=== PATIENT | female | born 1990 | race African-American/Black ===

== ENCOUNTER 2017-03-27 14:14 | Emergency (ER) | payer SELFPAY ==
[2017-03-27 14:20] VITALS: BP 126/80; BMI 32.5
[2017-03-27] MEDS ORDERED: XYLOCAINE VISCOUS MT STA (14:44)
[2017-03-27] MEDS ORDERED: ROCEPHIN VIAL 1 GM IM ONE (14:46)
[2017-03-27] MEDS ORDERED: TORADOL 60 MG VIAL IM ONE (14:46)
--- NOTE | 2017-03-27 14:49 | DR.GENAD ---
HPI - PCP Primary Care Physician: hernandez - Complaint/Symptoms Chief Complaint Doctors Comments: Patient is complaining of sore throat for the past two days getting worst today with painful swallowing and problems drinking liquids. States she has had mononucleosis in 2003 in which she was hospitalized for about a week and she had turned jaundice at that time. 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 States her temp was 103 last night. States she has had a bilateral tubaligatin. She denies dysuria, hematuria or diarrhea. States she usually get yeast infection after antibiotics and wants some Diflucan. Chief Complaint:: patient stated her throat has been hurting. she stated she has a hx of strep and mono. 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: NO Have you had fever, night sweats or hemotysis?: No Have you traveled outside the country in the last 6 months?: No Isolation: Standard ROS - Review of Systems Constitutional: No Symptoms Reported, Fever, Malaise, Weakness. negative: See HPI, Chills, Diaphoresis, Irritable, Fatigue, Loss of Appetite, Other Eyes: No Symptoms Reported. negative: See HPI, Eye Pain, Blurred Vision, Tearing, Discharge, Photophobia, Diplopia, Other ENTM: No Symptoms Reported, Nose Congestion, Mouth Pain, Throat Pain, Throat Swelling. negative: See HPI, Ear Pain, Ear Discharge, Pulling on Ears, Hearing Loss, Nose Pain, Nose Discharge, Epistaxis, Mouth Swelling, Loose Teeth, Drooling, Ear Foreign Body Respiratoy: No Symptoms Reported. negative: See HPI, Productive Cough, Non- Productive Cough, Moist Cough, Dry Cough, Hacking Cough, Barking Cough, Brassy Cough, Orthopnea, Short of Breath, Stridor, Wheezing, Hemoptysis, Other Cardiovascular: No Symptoms Reported. negative: See HPI, Chest Pain, Edema, Palpitations, Syncope, Cyanosis, Skin Mottling, Other Gastrointestinal/Abdominal: No Symptoms Reported Genitourinary: No Symptoms Reported Neurological: No Symptoms Reported, Weakness. negative: See HPI, Anxiety, Depressed, Emotional Problems, Headache, Numbness, Paresthesia, Pre-existing Deficit, Seizure, Tingling, Tremors, Dizziness, Problems Walking, Speech Problem , Other Musculoskeletal: No Symptoms Reported Integumentary: No Symptoms Reported Hematologic/Lymphatic: No Symptoms Reported Endocrine: No Symptoms Reported. negative: See HPI, Excessive Sweating, Flushing, Intolerance to Cold, Intolerance to Heat, Increased Hunger, Increased Thirst, Increased Urine, Unexplained Weight Gain, Unexplained Weight Loss, Failure to Thrive, Decreased Appetite, Other Psychiatric: No Symptoms Reported PE - Vital Signs Vitals: Temperature 99.9 F Pulse Rate 105 Respiratory Rate 16 Blood Pressure [Left Arm] 132/74 Blood Pressure 126/80 O2 Sat by Pulse Oximetry 100 - General Limitations: No Limitations General Appearance: Alert, In Distress (moderate) - Head Head Exam: Normal Inspection, Atraumatic, Normocephalic - Eyes Eye exam: Normal Appearance, PERRL, EOMI. negative: Scleral Icterus, Conjunctival Injection, Nystagmus, Miosis, Mydrasis, Periorbital Swelling, Periorbital Tenderness, Other - ENT ENT Exam: Normal Exam, Normal Oropharynx, Normal External Ear Exam, Mucous Membranes Moist, TM's Normal Bilaterally External Ear Exam: Normal External Inspection TM/Canal Exam: Bilateral Normal Mouth Exam: Normal Inspection, Drooling. negative: Trismus, Lip Swelling, Tongue Elevation, Tongue Swelling, Laceration, Other Throat Exam: Normal Inspection, Tonsillar Exudate - Neck Neck Exam: Normal Inspection, Full ROM, Trachea Midline. negative: Tenderness ( eeeeeeeeeeeeeeeeeeeeeeeeeeeeeeeeeeeeeeeeeeeeeeeeeeeeeeeeeeeeeeeeeeeeeeeeeeeeeeee eeeeeeeeeee ), Meningismus, Lymphadenopathy, Thyromegaly, Other - Chest Chest Inspection: Normal Inspection, Symmetric Chest Wall Rise - Respiratory Respiratory Exam: Normal Lung Sounds Bilat Respiratory Exam: Bilateral Clear to Auscultation - Cardiovascular Cardiovascular Exam: Regular Rate, Normal Rhythm, Normal Heart Sounds - Abdominal Exam Abdominal Exam: Normal Inspection, Normal Bowel Sounds, Soft Abdominal Tenderness: negative: RUQ, RLQ, LUQ, LLQ, Epigastrium, Suprapubic, Diffuse, Mild, Moderate, Severe, Other - Extremities Extremities Exam: Normal Inspection, Full ROM, Normal Capillary Refill. negative: Tenderness, Edema, Joint Swelling, Calf Tenderness, Other - Back Back Exam: Normal Inspection, Full ROM. negative: Tenderness, (R) CVA Tenderness, (L) CVA Tenderness, Muscle Spasm, Paraspinal Tenderness, Vertebral Tenderness, Rashes, (R) Sciatic Notch Tenderness, (L) Sciatic Notch Tendern, (R ) Straight Leg Raise, (L) Straight Leg Raise, Other - Neurologic Neurological Exam: Alert, Oriented X3, CN II-XII Intact, Normal Gait, Reflexes Normal - Psychiatric Psychiatric Exam: Normal Affect, Normal Mood. negative: Depressed, Agitated, Anxious, Flat Affect, Manic, Homicidal Ideation, Suicidal Ideation, Other - Skin Skin Exam: Warm, Dry, Intact, Normal Color ROR - Labs Reviewed Laboratory Results Reviewed?: Yes (All labs and x-ray results reviewed and discussed with patient) Laboratory: Monoscreen Negative (NEGATIVE) 03/27/17 15:02 Streptococcus Screen Negative (NEGATIVE) 03/27/17 14:30 - XRAY XRAY Interpreted by: Radiologist - Diagnosis Discharge Problem: Pharyngitis, acute Qualifiers: Pharyngitis/tonsillitis etiology: unspecified etiology Qualified Code(s): J02.9 - Acute pharyngitis, unspecified Sinusitis Qualifiers: Sinusitis location: maxillary - Discharge Plan Disposition: 01 HOME, SELF-CARE Condition: Stable Prescriptions: Acetaminophen/Codeine Tab [TYLENOL w/CODEINE #3 (300 MG/30 MG) *] 1 tab PO Q4- 6H PRN #30 tab PRN Reason: Pain Amoxicillin & Pot Clavulanate [AUGMENTIN TAB 875 mg/125 mg *] 1 tab PO BID #20 tab Cetirizine HCl [Zyrtec Tab 10 mg] 10 mg PO DAILY #30 tab Fluconazole [DIFLUCAN TAB 150 MG *] 150 mg PO ONCE #2 tab - Follow ups/Referrals Follow ups/Referrals: AMY SINGLETON [Primary Care Provider] - 3 days - Instructions Instructions: Pharyngitis, Sore Throat, [id number], Dysphagia Diet Level 1, Pureed, Sinusitis, Adult
[2017-03-27] MEDS ORDERED: ROCEPHIN VIAL 1 GM ONE (15:19)
[2017-03-27] MEDS ORDERED: TORADOL 60 MG VIAL ONE (15:19)
[2017-03-27 15:30] LABS: MONOTEST NEGATIVE (NEGATIVE)
[2017-03-27] MEDS ORDERED: DIFLUCAN PO ONE (15:48)
[2017-03-27] MEDS ORDERED: XYLOCAINE VISCOUS ONE (16:00)
== END 2017-03-27 16:09 | disposition home or self-care (01) ==
LOC: ER 14:23
DX: J02.9 Acute pharyngitis, unspecified (principal); J32.0 Chronic maxillary sinusitis
CPT/HCPCS: 86308; 87070; 87880; 96372; 99282; 99283; J0696; J1885

== ENCOUNTER 2017-03-29 00:02 | Emergency (ER) | payer SELFPAY ==
[2017-03-29 00:15] VITALS: BP 113/80; BMI 32.3
[2017-03-29] MEDS ORDERED: TORADOL 60 MG VIAL IM ONE (00:42)
--- NOTE | 2017-03-29 00:42 | DR.GENAD ---
HPI - PCP Primary Care Physician: hernandez - HPI Comment HPI Comment: PATIENT SEEN IN ED TWO DAYS AGO. STREP AND MONO WERE NEGATIVE. CURRENTLY ON AUGMENTIN AND TYLENOL 3. SHE IS THROWING UP MEDS AND GETTING WORSE. STILL RUNNING FEVER. - Complaint/Symptoms Chief Complaint Doctors Comments: SORE THROAT AND DYSPHAGIA TIMES 4 DAYS. 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 negative: Ear Pain Respiratoy: No Symptoms Reported, Non-Productive Cough. negative: Productive Cough, Short of Breath, Wheezing, Hemoptysis Cardiovascular: No Symptoms Reported. negative: Chest Pain, Edema, Palpitations Gastrointestinal/Abdominal: No Symptoms Reported. negative: Abdominal Pain, Constipation, Diarrhea, Nausea, Vomiting Genitourinary: negative: Dysuria, Frequency, Hematuria Neurological: Headache. negative: Weakness, Dizziness Musculoskeletal: Muscle Pain Integumentary: No Symptoms Reported Hematologic/Lymphatic: No Symptoms Reported Endocrine: No Symptoms Reported All Other Systems: Reviewed and Negative PE - Vital Signs Vitals: Temperature 99.7 F Pulse Rate 100 Respiratory Rate 16 Blood Pressure [Left Arm] 132/74 Blood Pressure 113/80 O2 Sat by Pulse Oximetry 98 - General Limitations: No Limitations General Appearance: Alert - Head Head Exam: Normal Inspection - Eyes Eye exam: Normal Appearance - ENT ENT Exam: Normal External Ear Exam External Ear Exam: Normal External Inspection TM/Canal Exam: Bilateral Normal Nose Exam: Normal Nose Exam Mouth Exam: Normal Inspection. negative: Trismus Throat Exam: Tonsillar Erythema, Tonsillomegaly, Tonsillar Exudate - Neck Neck Exam: Trachea Midline. negative: Tenderness, Meningismus, Lymphadenopathy - Chest Chest Inspection: Symmetric Chest Wall Rise - Respiratory Respiratory Exam: Normal Lung Sounds Bilat Respiratory Exam: Bilateral Clear to Auscultation - Cardiovascular Cardiovascular Exam: Regular Rate, Normal Rhythm, Normal Heart Sounds - Abdominal Exam Abdominal Exam: Normal Bowel Sounds, Soft. negative: Tenderness - Extremities Extremities Exam: Normal Inspection - Back Back Exam: Normal Inspection - Neurologic Neurological Exam: Alert, Oriented X3 - Psychiatric Psychiatric Exam: Anxious - Skin Skin Exam: Normal Color [facility] - Additional Information Additional Information Obtained From: Family - Differential Diagnosis Differential Diagnosis: INFECTIOUS MONONUCLEOSIS, PHARYNGITIS, DYSPHAGIA Course - Treatment Treatment: SEE ORDERS - Education/Counseling Education/Counseling: Patient, Family, Education Educated On: Treatment, Diagnosis, Needs for Follow Up ROR - Labs Reviewed Laboratory Results Reviewed?: Yes Result Diagrams: 03/29/17 00:35 03/29/17 00:35 Laboratory: WBC 9.5 X10^3/uL (3.6-10.0) 03/29/17 00:35 RBC 3.90 X10^6/uL (3.5-5.4) 03/29/17 00:35 Hgb 10.9 g/dL (12.0-16.0) L 03/29/17 00:35 Hct 33.1 % (36.0-47.0) L 03/29/17 00:35 MCV 84.9 fL (80.0-100.0) 03/29/17 00:35 MCH 27.9 pg (27.0-34.0) 03/29/17 00:35 MCHC 32.9 g/dL (33.0-35.0) L 03/29/17 00:35 RDW 13.3 % (11.6-16.5) 03/29/17 00:35 Plt Count 221 X10^3/uL (150.0-450.0) 03/29/17 00:35 MPV 9.3 fL (7.4-11.0) 03/29/17 00:35 Neut % 78.6 % (42.0-75.0) H 03/29/17 00:35 Lymph % 11.7 % (21.0-51.0) L 03/29/17 00:35 [place] % 9.3 % (0.0-13.0) 03/29/17 00:35 Eos % 0.0 % (0.9-2.9) L 03/29/17 00:35 Baso % 0.4 % (0.2-1.0) 03/29/17 00:35 Neut # 7.5 x10^3/uL (2.2-4.8) H 03/29/17 00:35 Lymph # 1.1 X10^3/uL (1.3-2.9) L 03/29/17 00:35 [place] # 0.9 x10^3/uL (0.3-0.8) H 03/29/17 00:35 Eos # 0.0 x10^3/uL (0.0-0.2) 03/29/17 00:35 Baso # 0.0 X10^3/uL (0.0-0.1) 03/29/17 00:35 Absolute Nucleated RBC 0.0 /100WBC 03/29/17 00:35 Sodium 138 mmol/L (136-145) 03/29/17 00:35 Corrected Sodium TNP 03/29/17 00:35 Potassium 3.6 mmol/L (3.5-5.1) 03/29/17 00:35 Chloride 104 mmol/L (98-107) 03/29/17 00:35 Carbon Dioxide 27.0 mmol/L (21-32) 03/29/17 00:35 BUN 10 mg/dL (7-18) 03/29/17 00:35 Creatinine 0.99 mg/dL (0.55-1.02) 03/29/17 00:35 Est GFR (MDRD) Af Amer > 60 (>60) 03/29/17 00:35 Est GFR (MDRD) Non-Af > 60 (>60) 03/29/17 00:35 Glucose 91 mg/dL (65-99) 03/29/17 00:35 Calcium 8.5 mg/dL (8.5-10.1) 03/29/17 00:35 Corrected Calcium TNP 03/29/17 00:35 Total Bilirubin 0.40 mg/dL (0.2-1.0) 03/29/17 00:35 AST 18 Units/L (15-37) 03/29/17 00:35 ALT 20 Units/L (12-78) 03/29/17 00:35 Alkaline Phosphatase 46 Units/L (46-116) 03/29/17 00:35 Total Protein 7.1 g/dL (6.4-8.2) 03/29/17 00:35 Albumin 3.4 g/dL (3.4-5.0) 03/29/17 00:35 Globulin 3.7 g/dL (2.5-4.5) 03/29/17 00:35 Albumin/Globulin Ratio 0.9 Ratio (1.1-2.1) L 03/29/17 00:35 Monoscreen Negative (NEGATIVE) 03/29/17 00:35 - Diagnosis Discharge Problem: Acute pharyngitis Qualifiers: Pharyngitis/tonsillitis etiology: unspecified etiology Qualified Code(s): J02.9 - Acute pharyngitis, unspecified Dysphagia Qualifiers: Dysphagia type: oropharyngeal phase Qualified Code(s): R13.12 - Dysphagia, oropharyngeal phase - Discharge Plan Disposition: HOME, SELF-CARE Condition: Stable Prescriptions: Hydrocodone-Acetaminophen [Hydrocodone/Acetaminophen 10-325 mg/15Ml] 10 ml PO Q6H PRN #240 ml PRN Reason: Pain - Follow ups/Referrals Follow ups/Referrals: NFD,None [Primary Care Provider] - 3 days - Instructions Instructions: Dysphagia, Pharyngitis, Dysphagia Diet Level 1, Pureed Additional Instructions: RETURN TO ED IF WORSE.
[2017-03-29] MEDS ORDERED: TORADOL 60 MG VIAL ONE (00:47)
[2017-03-29 01:07] LABS: ALANINE AMINOTRANSFERASE 20 Units/L (12-78); ALBUMIN 3.4 g/dL (3.4-5.0); ALKALINE PHOSPHATASE 46 Units/L (46-116); ASPARTATE AMINO TRANSFERASE 18 Units/L (15-37); BASOPHILS % (AUTO) 0.4 % (0.2-1.0); BLOOD UREA NITROGEN 10 mg/dL (7-18); CALCIUM 8.5 mg/dL (8.5-10.1); CHLORIDE 104 mmol/L (98-107); CREATININE 0.99 mg/dL (0.55-1.02); GLUCOSE 91 mg/dL (65-99); HEMATOCRIT 33.1 % (36.0-47.0); HEMOGLOBIN 10.9 g/dL (12.0-16.0); LYMPHOCYTES # (AUTO) 1.1 X10^3/uL (1.3-2.9); LYMPHOCYTES % (AUTO) 11.7 % (21.0-51.0); MEAN CORPUSCULAR HEMOGLOBIN 27.9 pg (27.0-34.0); MEAN CORPUSCULAR HGB CONC 32.9 g/dL (33.0-35.0); MEAN CORPUSCULAR VOLUME 84.9 fL (80.0-100.0); MEAN PLATELET VOLUME 9.3 fL (7.4-11.0); MONOCYTES # (AUTO) 0.9 x10^3/uL (0.3-0.8); MONOCYTES % (AUTO) 9.3 % (0.0-13.0); NEUTROPHILS # (AUTO) 7.5 x10^3/uL (2.2-4.8); NEUTROPHILS % (AUTO) 78.6 % (42.0-75.0); PLATELET COUNT 221 X10^3/uL (150.0-450.0); RED CELL DISTRIBUTION WIDTH 13.3 % (11.6-16.5); SODIUM 138 mmol/L (136-145); TOTAL PROTEIN 7.1 g/dL (6.4-8.2); WHITE BLOOD COUNT 9.5 X10^3/uL (3.6-10.0); eGFR BLACK RACES > 60 (>60); eGFR NON BLACK RACES > 60 (>60)
[2017-03-29 01:38] LABS: MONOTEST NEGATIVE (NEGATIVE)
== END 2017-03-29 01:57 | disposition home or self-care (01) ==
LOC: ER 00:02
DX: J02.9 Acute pharyngitis, unspecified (principal); R13.12 Dysphagia, oropharyngeal phase
CPT/HCPCS: 36415; 80053; 85025; 86308; 96372; 99282; J1885

== ENCOUNTER → 2017-11-25 | Outpatient (CLI) | payer OTHER ==
[2017-11-25 17:09] LABS: BASOPHILS % (AUTO) 0.4 % (0.2-1.0); EOSINOPHILS # (AUTO) 0.6 x10^3/uL (0.0-0.2); EOSINOPHILS % (AUTO) 7.8 % (0.9-2.9); HEMATOCRIT 36.1 % (36.0-47.0); HEMOGLOBIN 11.6 g/dL (12.0-16.0); LYMPHOCYTES # (AUTO) 2.5 X10^3/uL (1.3-2.9); MEAN CORPUSCULAR HEMOGLOBIN 27.1 pg (27.0-34.0); MEAN CORPUSCULAR VOLUME 84.6 fL (80.0-100.0); MEAN PLATELET VOLUME 8.9 fL (7.4-11.0); MONOCYTES # (AUTO) 0.6 x10^3/uL (0.3-0.8); MONOCYTES % (AUTO) 8.1 % (0.0-13.0); NEUTROPHILS # (AUTO) 4.1 x10^3/uL (2.2-4.8); NEUTROPHILS % (AUTO) 51.7 % (42.0-75.0); PLATELET COUNT 348 X10^3/uL (150.0-450.0); RED BLOOD COUNT 4.26 X10^6/uL (3.5-5.4); RED CELL DISTRIBUTION WIDTH 13.7 % (11.6-16.5)
[2017-11-25 17:28] LABS: ALANINE AMINOTRANSFERASE 18 Units/L (12-78); ALBUMIN 3.7 g/dL (3.4-5.0); ALKALINE PHOSPHATASE 61 Units/L (46-116); ASPARTATE AMINO TRANSFERASE 14 Units/L (15-37); BLOOD UREA NITROGEN 11 mg/dL (7-18); CALCIUM 8.8 mg/dL (8.5-10.1); CARBON DIOXIDE 31.9 mmol/L (21-32); CHLORIDE 105 mmol/L (98-107); CREATININE 0.77 mg/dL (0.55-1.02); SODIUM 141 mmol/L (136-145); TOTAL PROTEIN 7.5 g/dL (6.4-8.2); TSH (3RD GENERATION) 0.738 uIU/mL (0.358-3.74); eGFR BLACK RACES > 60 (>60); eGFR NON BLACK RACES > 60 (>60)
[2017-11-27 21:30] LABS: HEPATITIS A ANTIBODY IGM Negative (Negative)
[2017-11-28 08:29] LABS: HEPATITIS B CORE IGM Negative (Negative); HEPATITIS B SURFACE ANTIGEN Negative (Negative); VITAMIN D 25 OH 12 ng/mL (30-80)
== END ==
LOC: LAB 16:31
PROVIDERS: ATTEND Nurse Practitioner Family
DX: R53.83 Other fatigue (principal); E56.8 Deficiency of other vitamins; Z72.51 High risk heterosexual behavior
CPT/HCPCS: 36415; 80053; 80074; 82306; 84443; 85025; 86592; 86701

== ENCOUNTER 2017-12-13 17:23 | Emergency (ER) | payer OTHER ==
[2017-12-13 17:34] VITALS: BP 130/67; BMI 32.0
--- NOTE | 2017-12-13 17:59 | DR.GENAD ---
HPI - PCP Primary Care Physician: AYAAN - HPI Comment HPI Comment: PATIENT SAID HER BRI MAY HAVE HAD UNPROTECTED SEX. SHE IS HAVING LOWER ABDOMINAL CRAMPING AND ALSO HAVING VAGINAL ITCHING. WAS INTERMITTENT BUT PERSISTENT NOW. - Complaint/Symptoms Chief Complaint Doctors Comments: LOWER ABDOMINAL CRAMPING, EXPOSE TO STD. Chief Complaint:: "PERSONAL/CRAMPING. CRAMPING; WENT TO DR. TWO WEEKS AGO DUE TO PARTNER HAVING SEX WITH SOMEONE ELSE. HE DOESN'T ADMIT TO HAVING UNSAFE SEX BUT PT HAS BEEN HAVING A LOT OF CRAMPING WITH NOTICEABLY ODOR FROM VAGINA. JUST WANTS TO CHECK TO SEE WHAT MIGHT BE GOING ON. BURNING AND ITCHING. 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 - Family History History of Family Medical Conditions: No Family Medical History: Coronary Artery Disease, Hypertension - Social History Does patient currently use any type of tobacco product: Yes Have you used tobacco products in the last 12 months: Yes Type of Tobacco Use: Cigars How many years tobacco product used: 4 Does any household member use tobacco: No Alcohol Use: Occasionally Do you use any recreational Drugs:: No Lives With: Alone Lives Where: Home - infectious screening In the last 2 months have you had wt loss of >10#?: NO Have you had fever, night sweats or hemotysis?: No Have you traveled outside the country in the last 6 months?: No Isolation: Standard ROS - Review of Systems Constitutional: No Symptoms Reported Eyes: No Symptoms Reported ENTM: No Symptoms Reported Respiratoy: No Symptoms Reported Cardiovascular: No Symptoms Reported Gastrointestinal/Abdominal: Abdominal Pain (LOWER ABD.) Genitourinary: Pain, Other (VAGINAL ITCHING.) Neurological: No Symptoms Reported Musculoskeletal: No Symptoms Reported Integumentary: No Symptoms Reported Hematologic/Lymphatic: No Symptoms Reported Endocrine: No Symptoms Reported All Other Systems: Reviewed and Negative PE - Vital Signs Vitals: Temperature 97.3 F Pulse Rate 92 Respiratory Rate 22 Blood Pressure [Left Arm] 132/74 Blood Pressure 130/67 O2 Sat by Pulse Oximetry 100 - General Limitations: No Limitations General Appearance: Alert - Head Head Exam: Normal Inspection - Eyes Eye exam: Normal Appearance - ENT ENT Exam: Normal External Ear Exam External Ear Exam: Normal External Inspection TM/Canal Exam: Bilateral Normal Nose Exam: Normal Nose Exam Mouth Exam: Normal Inspection Throat Exam: Normal Inspection - Neck Neck Exam: Normal Inspection - Chest Chest Inspection: Symmetric Chest Wall Rise - Respiratory Respiratory Exam: Normal Lung Sounds Bilat Respiratory Exam: Bilateral Clear to Auscultation - Cardiovascular Cardiovascular Exam: Regular Rate, Normal Rhythm, Normal Heart Sounds - Abdominal Exam Abdominal Exam: Normal Bowel Sounds, Soft. negative: Tenderness - Extremities Extremities Exam: Normal Inspection - Back Back Exam: Normal Inspection - Neurologic Neurological Exam: Alert, Oriented X3 - Psychiatric Psychiatric Exam: Normal Affect, Normal Mood - Skin Skin Exam: Normal Color MDM - Differential Diagnosis Differential Diagnosis: STD EXPOSURE, UTI, VAGINITIS Course - Treatment Treatment: SEE ORDERS. IM ROCEPHIN AND PO ZITHROMAX IN ED. - Education/Counseling Education/Counseling: Patient, Education Educated On: Diagnosis, Needs for Follow Up ROR - Labs Reviewed Laboratory Results Reviewed?: Yes Laboratory: Specimen Type Clean catch urine 12/13/17 18:50 Urine Color Yellow (YELLOW) 12/13/17 18:50 Urine Appearance Slightly hazy (CLEAR) 12/13/17 18:50 Urine pH 6.0 (5.0 - 8.0) 12/13/17 18:50 Ur Specific [place] 1.010 (1.000-1.030) 12/13/17 18:50 Urine Protein Negative (NEGATIVE) 12/13/17 18:50 Urine Glucose (UA) Negative (NEGATIVE) 12/13/17 18:50 Urine Ketones Negative (NEGATIVE) 12/13/17 18:50 Urine Occult Blood Negative (NEGATIVE) 12/13/17 18:50 Urine Nitrite Negative (NEGATIVE) 12/13/17 18:50 Urine Bilirubin Negative (NEGATIVE) 12/13/17 18:50 Urine Urobilinogen Normal (NORMAL) 12/13/17 18:50 Ur Leukocyte Esterase 1+ (NEGATIVE) 12/13/17 18:50 Urine RBC -2 /HPF (NONE SEEN) 12/13/17 18:50 Urine WBC 0-3 /HPF (NONE SEEN) 12/13/17 18:50 Ur Squamous Epith Cells Moderate /HPF (NEGATIVE) 12/13/17 18:50 Urine Bacteria Trace /HPF (NEGATIVE) 12/13/17 18:50 Ur Culture Indicated? No/not indicated 12/13/17 18:50 Ur C. trach DNA (PCR) Not detected (NOT DETECT) 12/13/17 18:20 U N.gonorrhoeae DNA PCR Not detected (NOT DETECT) 12/13/17 18:20 - Diagnosis Discharge Problem: STD exposure Vaginitis Qualifiers: Chronicity: acute Qualified Code(s): N76.0 - Acute vaginitis - Discharge Plan Disposition: 01 HOME, SELF-CARE Condition: Stable - Follow ups/Referrals Follow ups/Referrals: BRY JEROME [Primary Care Provider] - 3 days - Instructions Instructions: Gonorrhea Testing, Vaginitis, [id number], Chlamydia Test Additional Instructions: RETURN TO ED IF WORSE.
[2017-12-13] MEDS ORDERED: ROCEPHIN VIAL 250 MG IM ONE (18:55)
[2017-12-13] MEDS ORDERED: ZITHROMAX TAB 250 MG PO ONE ×2 (18:55→19:02)
[2017-12-13] MEDS ORDERED: ROCEPHIN VIAL 250 MG ONE (19:02)
[2017-12-13 19:11] LABS: BILIRUBIN,URINE NEGATIVE (NEGATIVE); BLOOD/HEMOGLOBIN,URINE NEGATIVE (NEGATIVE); GLUCOSE, URINE NEGATIVE (NEGATIVE); KETONES,URINE NEGATIVE (NEGATIVE); LEUKOCYTE ESTERASE ,URINE 1+ (NEGATIVE); NITRITES,URINE NEGATIVE (NEGATIVE); PROTEIN,URINE NEGATIVE (NEGATIVE); UROBILINOGEN,URINE NORMAL (NORMAL)
[2017-12-13 19:13] LABS: APPEARANCE,URINE SLIGHTLY HAZY (CLEAR); COLOR,URINE YELLOW (YELLOW)
[2017-12-13 19:14] LABS: BACTERIA,URINE TRACE /HPF (NEGATIVE); RBC,URINE -2 /HPF (NONE SEEN); SQUAMOUS EPITHELIAL CELL,UR MODERATE /HPF (NEGATIVE)
[2017-12-13 20:02] LABS: CHLAMYDIA TRACH URINE NOT DETECTED (NOT DETECT)
== END 2017-12-13 19:22 | disposition home or self-care (01) ==
LOC: ER 17:40
DX: N76.0 Acute vaginitis (principal); Z20.2 Contact with and (suspected) exposure to infections with a predominantly sexual mode of transmission
CPT/HCPCS: 81001; 87491; 87591; 96372; 99282; Q0144; J0696